=== PATIENT | female | born 1950 | race Caucasian/White ===

== ENCOUNTER 2020-11-24 14:06 | Outpatient (CLI) | payer MEDICARE, SELFPAY ==
--- NOTE | ~2020-11-24 | US_ITS ---
EXAMINATION: US carotid duplex BI DATE: 11/24/2020 14:54 INDICATION: Carotid stenosis. Dizziness. TECHNIQUE: Grayscale, color Doppler, and pulsed Doppler images of the cervical carotid arteries were obtained. The degree of vessel stenosis is placed in one of the following categories: normal, <50%, 5 0-69%, >=70% but less than near-occlusion, near-occlusion, or total occlusion. Note that percent sten osis relative to normal distal artery lumen diameter is indirectly measured from velocity measurement s as described by Wallace, et al. Radiology 2003; 229:340-346. Notes: Normal: Peak systolic velocity <125 centimeters/sec and no plaque <50%. Peak systolic velocity <125 ( EDV <40; ICA/CCA PSV ratio <2.0; used these factors only a tandem lesions or low cardiac output or co ntralateral disease) 50-69 %: PSV 125-230 (EDV 40-100; ratio 2-4) >= 70% but less than near occlusion: PSV greater than 230 (EDV > 100; ratio> 4.0) Near Occlusion: PSV that is variable; markedly narrowed lumen Occlusion: Absent flow on color/spectral Doppler and no lumen on joyce scale. COMPARISON: None. FINDINGS: RIGHT: The right common carotid artery (CCA) peak systolic velocity (PSV) is 112 cm/s. The right internal ca rotid artery (ICA) PSV is 108 cm/s. The right ICA end-diastolic velocity (EDV) is 31 cm/s. The right ICA/CCA PSV ratio is 0.97. The external carotid artery (ECA) PSV is 104 cm/s. There is antegrade flow in the right vertebral artery. There is a 2 cm right thyroid nodule, partially visualized. LEFT: The left CCA PSV is 111 cm/s. The left ICA PSV is 96 cm/s. The left ICA EDV is 28 cm/s. The left ICA/ CCA PSV ratio is 0.87. The ECA PSV is 146 cm/s. There is antegrade flow in the left vertebral artery . IMPRESSION: 1. Less than 50% stenosis in the right internal carotid artery by sonographic criteria. 2. Less than 50% stenosis in the left internal carotid artery by sonographic criteria. 2: Partially visualized 2 cm right thyroid nodule. Dedicated thyroid ultrasound recommended for furth er assessment. Reviewed, dictated and finalized at location A. IMPRESSION: 1. Less than 50% stenosis in the right internal carotid artery by sonographic c riteria. 2. Less than 50% stenosis in the left internal carotid artery by sonographic cr iteria. 2: Partially visualized 2 cm right thyroid nodule. Dedicated thyroid ultrasound recommended for further assessment.
--- NOTE | ~2020-11-24 | CT_ITS ---
EXAMINATION: CT brain wo con EXAM DATE: 11/24/2020 14:27 INDICATION: G45.9 - Transient cerebral ischemic attack, unspecified . Dizziness. TECHNIQUE: Spiral CT of the head was performed without contrast. Axial, coronal and sagittal images were reviewed. The dose-length product (DLP) for this examination was 529.67 mGy-cm. The exposure w as tailored according to patient size, and iterative reconstruction (ASIR) was used as additional dos e reduction technique. There is no prior study for comparison. FINDINGS: There is no acute intraparenchymal hemorrhage. No evidence of intraparenchymal brain mass lesion. No evidence of acute infarction. Please note that initial head CT has limited sensitivity f or small or acute infarctions. There is mild periventricular and subcortical hypodensity, nonspecific but probably related to small vessel ischemic disease. There is mild prominence of the sulci and v entricles related to cerebral atrophy. There is intracranial carotid arteriosclerosis. There are n o extra-axial collections. There is no mass effect or midline shift. The orbits are unremarkable. Soft tissue is unremarkable. The visualized sinuses and mastoid air cells are well aerated. IMPRESSION: 1. No acute intracranial findings. 2. Chronic age related findings. Reviewed, dictated and finalized at location B.
== END 2020-11-24 14:07 | disposition home or self-care (01) ==
PROVIDERS: PCP Family Medicine; Visit Provider Family Medicine
DX: I65.23 Occlusion and stenosis of bilateral carotid arteries (principal)
CPT/HCPCS: 70450; 93880

== ENCOUNTER 2021-01-20 13:46 | Outpatient (CLI) | payer MEDICARE, SELFPAY ==
--- NOTE | ~2021-01-20 | US_ITS ---
EXAMINATION: US thyroid DATE: 01/20/2021 14:25 INDICATION: Nontoxic thyroid nodule on prior CT TECHNIQUE: Multiple ultrasound images of the thyroid were obtained. COMPARISON: None. FINDINGS: The right thyroid lobe measures 6.0 x 2.1 x 1.8 cm. The left thyroid lobe measures 3.7 x 1.6 x 1.2 c m. There are 3 thyroid nodules which are solid, wider than tall, hypoechoic with smooth margins and without echogenic foci (TI-RADS 4, moderately suspicious , FNA if >=1.5 cm, annual followup is >=1 cm ). The largest measuring 2.8 cm in the inferior thyroid, the next largest in the mid thyroid measures 1.5 cm and finally there is a 7 mm nodule at the superior left thyroid. There is an additional 1.5 c m solid isoechoic nodule with smooth margins and without echogenic foci (TI-RADS 3, mildly suspicious , FNA if >=2.5 cm, annual followup is >1.5 cm) in the inferior left thyroid. IMPRESSION: 1. Multinodular goiter. Recommend ultrasound-guided biopsy of the largest 2.8 cm TI RADS 4 nodule in the right thyroid. Reviewed, dictated and finalized at location A. IMPRESSION: 1. Multinodular goiter. Recommend ultrasound-guided biopsy of the largest 2.8 c m TI RADS 4 nodule in the right thyroid.
== END 2021-01-20 13:47 | disposition home or self-care (01) ==
PROVIDERS: PCP Family Medicine; Visit Provider Family Medicine
DX: E04.2 Nontoxic multinodular goiter (principal)
CPT/HCPCS: 76536

== ENCOUNTER 2021-01-28 13:00 | Outpatient (CLI) | payer MEDICARE, SELFPAY ==
--- NOTE | ~2021-01-28 | US_ITS ---
EXAMINATION: US FNA w image guidance DATE: 01/28/2021 14:08 INDICATION: Nontoxic single thyroid nodule TECHNIQUE: A time-out was performed to verify the patient's name, date of , and procedure to be performed . The procedure and its benefits and risks were discussed with the patient. Risks specifically discus sed included bleeding and infection. The patient understood the risks and agreed to proceed. The neck was prepped and draped in the usual sterile manner. 3 mL 1% lidocaine was used for local anesthesia . 6 passes were made with a 25G needle into the lesion. Appropriate needle location was documented with continuous sonographic guidance. The specimens were passed to the radiologic technologist chief in the room. A sterile bandage was applied. There were no immediate complications. FINDINGS: Grayscale ultrasound images demonstrate biopsy needles advanced into a 3.4 x 2.4 x 2.1 cm solid nodul es at the inferior right thyroid. IMPRESSION: 1. Successful ultrasound-guided fine needle aspiration of a 3.4 cm solid TI RADS 4 nodule at the inf erior right thyroid. Reviewed, dictated and finalized at location A. IMPRESSION: 1. Successful ultrasound-guided fine needle aspiration of a 3.4 cm solid TI RA DS 4 nodule at the inferior right thyroid.
== END 2021-01-28 13:01 | disposition home or self-care (01) ==
PROVIDERS: PCP Family Medicine; Visit Provider Physician Assistant
DX: E04.1 Nontoxic single thyroid nodule (principal)
CPT/HCPCS: 10005; 88173; 88305

== ENCOUNTER 2021-02-18 09:12 | Outpatient (CLI) | payer MEDICARE, SELFPAY ==
--- NOTE | 2021-02-18 09:30 | ECG_ITS ---
Measurements Intervals [place] Rate: 75 P: 63 [place]: 129 QRS: 8 QRSD: 91 T: 33 QT: 370 QTc: 415 Interpretive Statements SINUS RHYTHM POSSIBLE LEFT ATRIAL ENLARGEMENT BORDERLINE R WAVE PROGRESSION, ANTERIOR LEADS BASELINE ARTIFACT- I, II, III, AVR, AVL BORDERLINE ECG Electronically Signed On 02-18-2021 9:32:26 CDT by Jim Baez D.O.
== END 2021-02-18 09:13 | disposition home or self-care (01) ==
LOC: ANHSURGERY 09:19
PROVIDERS: PCP Family Medicine; Visit Provider Otolaryngology
DX: Z01.810 Encounter for preprocedural cardiovascular examination (principal)
CPT/HCPCS: 93005

== ENCOUNTER 2021-02-24 01:47 | Day surgery (SDC) | payer MEDICARE, SELFPAY ==
[2021-02-13 15:12] VITALS: BMI 25.8
--- NOTE | 2021-02-23 05:40 | PM.HPGS ---
History of Present Illness History of Present Illness Consent: Risks, benefits, and alternatives have been discussed and questions answered. Patient agrees to proceed with procedure. Chief complaint: right thyroid nodule Narrative: Ariane Rodriges is a 70 year old female with a biopsy benign thyroid nodule that she feels is bothers her when she swallows Review of Systems Review of Systems: All systems reviewed & are unremarkable except as noted in HPI and below PMFSH Past Medical History Medical History HLD (hyperlipidemia) Surgical History Surgical History H/O section History of tonsillectomy Family History Family History Father Hypertension Family history of diabetes mellitus in first degree relative Family history of coronary artery disease Sibling Hypertension Asthma Family history of coronary artery disease Social History Social History Smoking status: Never smoker Second hand tobacco smoke exposure: No Alcohol intake: current Alcohol use details: WINE Substance use: never Substance use type: does not use Gender identity (if verbalized by the patient): Female Spiritual care concerns: No Meds Home Medications and Allergies Home Medications Medication Instructions Recorded Confirmed Type fexofenadine 180 mg tablet 180 mg PO DAILY 07/09/19 02/13/21 History fluticasone 500 mcg-salmeterol 50 1 inhalation INHALATION Q12H 07/09/19 02/13/21 History mcg/dose blistr powdr for inhalation fluticasone propionate 50 2 spray NASAL DAILY PRN 07/09/19 02/13/21 History mcg/actuation nasal spray,suspension albuterol sulfate 90 mcg/actuation 1 inhalation INHALATION Q4H PRN 09/03/19 02/13/21 Rx aerosol inhaler #6.7 gm pravastatin 20 mg tablet 20 mg PO DAILY #90 tablet 12/17/20 02/13/21 Rx multivitamin 1 tablet PO DAILY 01/21/21 02/13/21 History omega-3 fatty acids 1,000 mg 1,000 mg PO DAILY 01/21/21 02/13/21 History capsule vitamins A,C,T-ucuj-cmdmos 14,320 1 cap PO BID 01/21/21 02/13/21 History unit-226 mg-200 unit capsule Lacto.acidophilus-Bif.animalis 2 tablet PO DAILY 02/13/21 02/13/21 History [Children's Chewable Probiotic] aspirin 81 mg PO DAILY 02/13/21 02/13/21 History biotin-keratin [Biotin Plus 1 tablet PO DAILY 02/13/21 02/13/21 History Keratin] cholecalciferol (vitamin D3) 375 mcg PO DAILY 02/13/21 02/13/21 History dorzolamide [Trusopt] 1 drp LEFT EYE TID 02/13/21 02/13/21 History famotidine [Pepcid] 40 mg PO DAILY 02/13/21 02/13/21 History ketorolac 1 drp LEFT EYE QID 02/13/21 02/13/21 History lisinopril 10 mg PO QAM 02/13/21 02/13/21 History prednisolone acetate 1 drp LEFT EYE QID 02/13/21 02/13/21 History Allergies Allergy/AdvReac Type Severity Reaction Status Date / Time atorvastatin AdvReac Intermediate muscle Verified 02/13/21 14:55 cramps Exam Narrative: chest clear heart murmurs abdomen soft extremities negative palpable right thyroid nodule Assessment and Plan Additional Plan plan right thyroidectomy she has been explained the risks regarding recurring laryngeal nerve injury
[2021-02-24] VITALS (9 sets, daily range): BP systolic 130–169; BP diastolic 56–87; PULSE 71–89; RESP 14–18; TEMP 36.3–36.4; O2SAT 97–100; BMI 25.4
--- NOTE | 2021-02-24 06:38 | WPDHPUPDATE1 ---
History and Physical Update Update Date/Time: 02/24/21 06:38 History and Physical has been reviewed, including an updated exam of the patient. There are NO changes in the patient's condition. Risks, benefits, and alternatives have been discussed and questions answered. Patient agrees to proceed with procedure.
--- NOTE | 2021-02-24 08:50 | WPDANESEPPF ---
Anes - Initial Pre Proc Eval Procedure: Operation Date: 02/24/21 10:30 Proposed Procedures p Right Thyroidectomy - Ezio Prado MD Date/Time: 02/24/21 08:50 Surgeon: Ezio Prado MD Pre Op Diagnosis: right thyroid nodule Patient Data Age: 70 Gender: F Height: 1.5 m Weight: 58 kg Allergies Allergy/AdvReac Type Severity Reaction Status Date / Time atorvastatin AdvReac Intermediate muscle Verified 02/24/21 08:55 cramps Home Medications Medication Instructions Recorded Confirmed Type fexofenadine 180 mg tablet 180 mg PO DAILY 07/09/19 02/13/21 History fluticasone 500 mcg-salmeterol 50 1 inhalation INHALATION Q12H 07/09/19 02/13/21 History mcg/dose blistr powdr for inhalation fluticasone propionate 50 2 spray NASAL DAILY PRN 07/09/19 02/13/21 History mcg/actuation nasal spray,suspension albuterol sulfate 90 mcg/actuation 1 inhalation INHALATION Q4H PRN 09/03/19 02/13/21 Rx aerosol inhaler #6.7 gm pravastatin 20 mg tablet 20 mg PO DAILY #90 tablet 12/17/20 02/13/21 Rx multivitamin 1 tablet PO DAILY 01/21/21 02/13/21 History omega-3 fatty acids 1,000 mg 1,000 mg PO DAILY 01/21/21 02/13/21 History capsule vitamins A,C,Z-zguw-mitdvd 14,320 1 cap PO BID 01/21/21 02/13/21 History unit-226 mg-200 unit capsule Lacto.acidophilus-Bif.animalis 2 tablet PO DAILY 02/13/21 02/13/21 History [Children's Chewable Probiotic] aspirin 81 mg PO DAILY 02/13/21 02/13/21 History biotin-keratin [Biotin Plus 1 tablet PO DAILY 02/13/21 02/13/21 History Keratin] cholecalciferol (vitamin D3) 375 mcg PO DAILY 02/13/21 02/13/21 History dorzolamide [Trusopt] 1 drp LEFT EYE TID 02/13/21 02/13/21 History famotidine [Pepcid] 40 mg PO DAILY 02/13/21 02/13/21 History ketorolac 1 drp LEFT EYE QID 02/13/21 02/13/21 History lisinopril 10 mg PO QAM 02/13/21 02/13/21 History prednisolone acetate 1 drp LEFT EYE QID 02/13/21 02/13/21 History ECG: Date of Service: 02/18/21 Procedure(s): CA 12 lead EKG Accession Number(s): [id number] cc: ~ Measurements Intervals [place] Rate: 75 P: 63 [place]: 129 QRS: 8 QRSD: 91 T: 33 QT: 370 QTc: 415 Interpretive Statements SINUS RHYTHM POSSIBLE LEFT ATRIAL ENLARGEMENT BORDERLINE R WAVE PROGRESSION, ANTERIOR LEADS BASELINE ARTIFACT- I, II, III, AVR, AVL BORDERLINE ECG Electronically Signed On 02-18-2021 9:32:26 CDT by Jim Baez D.O. Dictated By: Jim Baez DO 02/18/21931 Patient hx anesthesia problems: none Family hx anesthesia problems: none PMFSH Past Medical History Medical History HLD (hyperlipidemia) Surgical History Surgical History H/O section History of tonsillectomy Family History Family History Father Hypertension Family history of diabetes mellitus in first degree relative Family history of coronary artery disease Sibling Hypertension Asthma Family history of coronary artery disease Social History Social History Second hand tobacco smoke exposure: No Alcohol intake: current Alcohol use details: rare Substance use: never Substance use type: does not use Living arrangements: alone Gender identity (if verbalized by the patient): Female Spiritual care concerns: No Anes - Eval Final PreProcedure Day of Procedure 02/24/21 08:50 Patient weight: normal Heart: regular rate and rhythm Lungs: clear to auscultation and normal air movement Airway: Mallampati scale
[2021-02-24] MEDS: LACTATED RINGERS 1,000 ML 30 ML IV CONT ×2 (09:12→11:05)
[2021-02-24] MEDS: ACETAMINOPHEN 500 MG TABLET 1000 MG PO (09:18)
[2021-02-24] MEDS: ceFAZolin 2 GM/D5W 50 ML 2 GM/50 ML BAG IVPB (10:15)
[2021-02-24] MEDS: LIDO 1%/EPINEPHRINE 1:100,000 10 ML VIAL 50 ML INFILTRATE (10:32)
--- NOTE | 2021-02-24 10:54 | W.PM.PROC2 ---
Procedure Note - Detailed Date of Procedure 02/24/21 Pre-op Diagnosis right thyroid nodule Post-op Diagnosis same Procedure Performed Right thyroidectomy Surgeon Ezio Prado MD Description of Procedure Patient was prepped and draped fashion anesthesia low collar incision was made after injecting with xylocaine with adrenaline subplatysmal flaps elevated midline strap muscles were divided the right side of the thyroid was identified with the micro debrided with the LigaSure a 2 large nodules on the right side removed care being taken to preserve the marginal branch of the recurrent recurring laryngeal nerve hemostasis was obtained with bipolar cautery hematuria placed in closed in layers a chromic and Monocryl Revised 01/24
[2021-02-24] MEDS: oxyCODONE HCL (*CRX) 5 MG TAB IR PO (12:10)
== END 2021-02-24 13:05 | disposition home or self-care (01) ==
PROVIDERS: PCP Family Medicine; Visit Provider Otolaryngology
PROC: (CPT 60210; principal; 2021-02-24 10:30)
DX: E04.2 Nontoxic multinodular goiter (principal); E06.5 Other chronic thyroiditis; E78.5 Hyperlipidemia, unspecified; Z79.51 Long term (current) use of inhaled steroids
CPT/HCPCS: 60210; 88307; A9270; J0330; J0690; J1100; J2405; J2704; J3010; J7120

== ENCOUNTER 2022-01-08 04:10 | Emergency (ER) | payer MEDICARE, SELFPAY ==
[2022-01-08 04:17] VITALS: BP 189/81; PULSE 92; RESP 18; TEMP 35.9; O2SAT 97
[2022-01-08] MEDS: ONDANSETRON HCL ODT 4 MG TABLET PO (05:47)
[2022-01-08] MEDS: FLUCONAZOLE 150 MG TABLET PO (05:48)
[2022-01-08] MEDS: metroNIDAZOLE 250 MG TABLET 2000 MG PO (05:49)
[2022-01-08 05:55] VITALS: BP 155/90; PULSE 85; RESP 17; O2SAT 95
--- NOTE | 2022-01-08 06:43 | ED.FEMALEGU ---
HPI - Female Genitourinary General Chief complaint: Urogenital-Female Stated complaint: burning in naya area Time Seen by Provider: 01/08/22 04:54 History of Present Illness HPI Narrative: 71-year-old female presents because she was noticing several weeks of irritation around her vagina, she thought it might be yeast so she got some ointment but this did not improve, she went to see her doctor who got a urinalysis but this did not show any infection. No fevers or chills. Not currently sexually active for 30 years. No vaginal bleeding. No discharge. Related Data Home Medications Medication Instructions Recorded Confirmed fexofenadine 180 mg tablet 180 mg PO DAILY 07/09/19 05/04/21 (Ally Allergy) fluticasone 500 mcg-salmeterol 50 1 inhalation inhalation Q12H 07/09/19 05/04/21 mcg/dose blistr powdr for inhalation (Advair Diskus) fluticasone propionate 50 2 spray intranasal DAILY PRN 07/09/19 05/04/21 mcg/actuation nasal Congestion spray,suspension multivitamin 1 tablet PO DAILY 01/21/21 05/04/21 omega-3 fatty acids 1,000 mg 1,000 mg PO DAILY 01/21/21 05/04/21 capsule (Fish Oil Concentrate) vitamins A,C,M-alrg-cwfosd 14,320 1 cap PO BID 01/21/21 05/04/21 unit-226 mg-200 unit capsule (PreserVision AREDS) Lactobac.acidophilus-Bifido.animalis 2 tablet PO DAILY 02/13/21 05/04/21 1.5 billion cell chewable tablet aspirin 81 mg chewable tablet 81 mg PO DAILY 02/13/21 05/04/21 biotin 10,000 mcg-keratin 100 mg 1 tablet PO DAILY 02/13/21 05/04/21 tablet (Biotin Plus Keratin) cholecalciferol (vitamin D3) 125 375 mcg PO DAILY 02/13/21 05/04/21 mcg (5,000 unit) capsule dorzolamide 2 % eye drops (Trusopt) 1 drp LEFT EYE TID 02/13/21 05/04/21 ketorolac 0.5 % eye drops 1 drp LEFT EYE QID 02/13/21 05/04/21 prednisolone acetate 1 % eye 1 drp LEFT EYE QID 02/13/21 05/04/21 drops,suspension Allergies Allergy/AdvReac Type Severity Reaction Status Date / Time atorvastatin AdvReac Intermediate muscle Verified 01/08/22 04:13 cramps Review of Systems Review of Systems: CONST: No fever. HEENT: No sore throat C/V: No chest pain RESP: No difficulty breathing GI: No abdominal pain : No dysuria but some discomfort and irritation around her perineum/vagina M/S: No joint pain. SKIN: No rash. NEURO: [No headache or focal numbness or weakness] PSYCH: [No depression] [facility] Past Medical History Medical History HLD (hyperlipidemia) Surgical History Surgical History H/O section History of retinal detachment left History of tonsillectomy Hx of partial thyroidectomy Family History Family History Father Hypertension Family history of diabetes mellitus in first degree relative Family history of coronary artery disease Sibling Hypertension Asthma Family history of coronary artery disease Social History Social History Smoking status: Never smoker Second hand tobacco smoke exposure: No Alcohol intake: current Alcohol use details: rare Substance use: never Substance use type: does not use Gender identity (if verbalized by the patient): Female Spiritual care concerns: No Exam Narrative: EXAMINATION OF ORGAN SYSTEMS/BODY AREAS: Constitutional: Vital signs per nursing GENERAL:[No acute distress, non-toxic appearing.] HEAD: Normal with no signs of head trauma. EYES: EOMI, conjunctiva normal ENT: Hearing grossly intact LUNGS: Nonlabored breathing. HEART: [Regular rate and rhythm] ABD: [Soft], [nontender to palpation] : No vaginal discharge, no lesions around the vagina or canal, no fissures EXT: Normal range of motion SKIN: [No rashes or lesions.] NEURO: [Alert and oriented x 3. No gross focal sensory or strength deficits.] PSYCH: Normal affect Course Vital Si
== END 2022-01-08 05:57 | disposition home or self-care (01) ==
PROVIDERS: Emergency Provider Emergency Medicine; PCP Family Medicine
DX: N89.8 Other specified noninflammatory disorders of vagina (principal); E78.5 Hyperlipidemia, unspecified; E89.0 Postprocedural hypothyroidism; Z79.82 Long term (current) use of aspirin
CPT/HCPCS: 99283; A9270

== ENCOUNTER 2022-08-11 12:45 | Emergency (ER) | payer MEDICARE, SELFPAY ==
--- NOTE | ~2022-08-11 | XR_ITS ---
EXAMINATION: XR chest 2V 08/11/2022 13:32 INDICATION: Shortness of breath. History of asthma. PROCEDURE: 2 view chest COMPARISON: No prior studies for comparison. FINDINGS: The lungs are clear. The cardiomediastinal silhouette is within normal limits. There are no pleural effusions. There is no pneumothorax suspected. There are calcified granulomas of both natalie ngs. IMPRESSION: 1: NO ACUTE CARDIOPULMONARY DISEASE. Reviewed, dictated and finalized at location B. OR BRANCH MANAGER
[2022-08-11 12:57] VITALS: BP 135/61; PULSE 72; RESP 16; TEMP 36.6; O2SAT 98
[2022-08-11 13:01] VITALS: BP 135/61; PULSE 72; RESP 16; TEMP 36.6; O2SAT 98
--- NOTE | 2022-08-11 13:23 | ED.URI ---
HPI - URI/Sore Throat General Chief Complaint: Upper Respiratory Infection Stated Complaint: ASTHMA Time Seen by Provider: 08/11/22 13:14 Source: patient Mode of arrival: ambulatory Limitations: no limitations History of Present Illness HPI Narrative: patient is a 71-year-old female that presents with chest heaviness and productive cough for 2 weeks. patient was seen 2 weeks ago and had a refill for her asthma patient. patient states she is using her rescue inhaler 2 to 3 times a day with no relief. Patient's states she remembered that she had a steroid Dosepak at the pharmacy and pick that up 5 days ago, finishing yesterday. Patient states she no relief. patient denies any sinus congestion, headache, fever. Related Data Home Medications Medication Instructions Recorded Confirmed fexofenadine 180 mg tablet 180 mg PO DAILY 07/09/19 08/11/22 (Ally Allergy) fluticasone propionate 50 2 spray intranasal DAILY PRN 07/09/19 08/11/22 mcg/actuation nasal Congestion spray,suspension multivitamin 1 tablet PO DAILY 01/21/21 08/11/22 omega-3 fatty acids 1,000 mg 1,000 mg PO DAILY 01/21/21 08/11/22 capsule (Fish Oil Concentrate) vitamins A,C,B-lvxp-xdfsnf 4,296 1 cap PO BID 01/21/21 08/11/22 mcg-226 mg-90 mg capsule (PreserVision AREDS) Lactobac.acidophilus-Bifido.animalis 2 tablet PO DAILY 02/13/21 08/11/22 1.5 billion cell chewable tablet aspirin 81 mg chewable tablet 81 mg PO DAILY 02/13/21 08/11/22 biotin 10,000 mcg-keratin 100 mg 1 tablet PO DAILY 02/13/21 08/11/22 tablet (Biotin Plus Keratin) cholecalciferol (vitamin D3) 125 375 mcg PO DAILY 02/13/21 08/11/22 mcg (5,000 unit) capsule famotidine 20 mg tablet 20 mg PO BID 08/11/22 08/11/22 ketorolac 0.5 % eye drops 1 drp ophthalmic (eye) DIRECTED 08/11/22 08/11/22 Allergies Allergy/AdvReac Type Severity Reaction Status Date / Time atorvastatin AdvReac Intermediate muscle Verified 08/11/22 12:58 cramps Review of Systems Review of Systems: CONSTITUTIONAL: Denies malaise, chills, sweats, or fever.? EYES: Denies visual changes, redness, or discharge.? ENT: denies rhinorrhea, congestion, sinus pain, otalgia and sore throat.? CARDIOVASCULAR: Denies chest pain, palpitations, or edema.? RESPIRATORY: Reports cough and dyspnea.? GASTROINTESTINAL: Denies abdominal pain, nausea, vomiting, diarrhea? SKIN: Denies rash or itching.? MUSCULOSKELETAL: Denies myalgia.? NEUROLOGIC: Denies headache All systems reviewed & are unremarkable except as noted in HPI and below PMFSH Past Medical History Medical History (Updated 08/11/22 @ 13:59 by Iqra Browning APRN) Asthma GERD (gastroesophageal reflux disease) HLD (hyperlipidemia) Hypothyroidism (acquired) Surgical History Surgical History H/O section History of retinal detachment left History of tonsillectomy Hx of partial thyroidectomy Family History Family History Father Hypertension Family history of diabetes mellitus in first degree relative Family history of coronary artery disease Sibling Hypertension Asthma Family history of coronary artery disease Social History Social History Smoking status: Never smoker Second hand tobacco smoke exposure: No Alcohol intake: current Drinks per week: 1 Alcohol use details: rare Substance use: never Substance use type: does not use Living arrangements: alone Occupation/Education: retired Gender identity (if verbalized by the patient): Female Spiritual care concerns: No Comments At time of signature, agree with nursing past medical, surgical, social and family history. There is no relevant family history pertinent to the presenting complaint? Exam Narrative: GENERAL: Well-appearing, well-nourished, and in no acute distress.? HEAD: Normoceph
[2022-08-11] MEDS: ALBUTEROL SULFATE NEB 2.5 MG/3 ML INH INHALATION (14:27)
[2022-08-11] MEDS: IPRATROPIUM BR 0.02% INH SOLN 0.5 MG/2.5 ML VIAL INHALATION (14:27)
[2022-08-11 15:00] VITALS: PULSE 78; RESP 18; O2SAT 99
--- NOTE | 2022-08-11 15:41 | PC.NURSE ---
1406- in room with patient to give discharge instructions, and pt asked why am i not getting a breathing treatment, since i know it helped my sister, and that is why i came, explained to pt that i would have the FOOD PRODUCTION MANAGER come back in and talk with her. 1425- neb treatment ordered and set up, explained to pt on usage, and time in duration. pt verbalized understanding.
== END 2022-08-11 15:00 | disposition home or self-care (01) ==
PROVIDERS: Emergency Provider Nurse Practitioner Family; PCP Family Medicine
DX: J06.9 Acute upper respiratory infection, unspecified (principal); E78.5 Hyperlipidemia, unspecified; E03.9 Hypothyroidism, unspecified; Z79.82 Long term (current) use of aspirin
CPT/HCPCS: 71046; 94640; 99213; G0463

== ENCOUNTER 2023-05-10 13:31 | Outpatient (CLI) | payer MEDICARE, SELFPAY ==
--- NOTE | ~2023-05-10 | DEXA_ITS ---
Bone Density Report Name: MALIK SINGLETARY Age: 72 Sex: Female Ethnicity: White Date of : 1950 Indication: postmenopausal; screening for osteoporosis; asthma or emphysema; Referring Provider: NATHAN GIL Study: Bone densitometry was performed. Exam Date: May 10, 2023 Accession number: [id number] Bone Density: Region BMD T-score Z-score Classification AP Spine(L1-L4) 0.957 -0.8 1.4 Normal Femoral Neck (Left) 0.693 -1.4 0.5 Osteopenia Total Hip (Left) 0.891 -0.4 1.2 Normal Femoral Neck (Right) 0.678 -1.5 0.4 Osteopenia Total Hip (Right) 0.848 -0.8 0.9 Normal Total Hip Mean 0.870 -0.6 1.1 Normal World Health Organization criteria for BMD impression classify patients as: Normal (T-score at or above -1.0), Osteopenia (T-score between -1.0 and -2.5), or Osteoporosis (T-score at or below -2.5). 10-year Fracture Risk(1): Major Osteoporotic Fracture 11% Hip Fracture 1.8% Reported Risk Factors: [place] (), Neck BMD=0.678, BMI=26.6 (1) FRAX(R) Version 3.08. Fracture probability calculated for an untreated patient. Fracture probability may be lower if the patient has received treatment. Clinical Information Provided by Patient: Has used the following medications: Vitamin D Has the following medical conditions: Asthma or Emphysema Patient maximum height was 60 Menopause Age: 55 Drinks caffeinated beverages Onset of menses at age 13 Number of children 1 Impression: The patient has low bone mass, based on the Right Femoral Neck T-score. The patient has an estimated ten-year risk of hip fracture of 1.8% and an estimated ten-year risk of major fracture of 11%, based on the WHO FRAX algorithm. Discussion: BONE DENSITY IS LOW AT ONE OR MORE SKELETAL SITES. This patient's lowest T-score is low at one or more skeletal sites. It meets the World Health Organization's (WHO) criteria for ?low bone mass? (T-score between -1.0 and -2.5). The patient's 10-year risk of fracture as calculated by FRAX is less than the threshold where pharmacological therapy is recommended by the National Osteoporosis Foundation (NOF). However, all treatment decisions require clinical judgment and consideration of individual patient factors, including patient preferences, comorbidities, previous drug use, risk factors not captured in the FRAX model (e.g., frailty, falls, vitamin D deficiency, increased bone turnover, interval significant decline in bone density) and possible under or overestimation of fracture risk by FRAX. The patient should follow a healthful lifestyle (good nutrition with adequate calcium and vitamin D, and appropriate weight-bearing exercise). Follow-Up: Consider repeating this study in 2 to 3 years to reassess this patient's status, or sooner if there is some new clinical ind
== END 2023-05-10 13:32 | disposition home or self-care (01) ==
PROVIDERS: PCP Family Medicine; Visit Provider Family Medicine
DX: Z78.0 Asymptomatic menopausal state (principal); M85.852 Other specified disorders of bone density and structure, left thigh; M85.851 Other specified disorders of bone density and structure, right thigh
CPT/HCPCS: 77080

== ENCOUNTER 2023-05-26 18:30 | Emergency (ER) | payer MEDICARE, SELFPAY ==
[2023-05-26 18:52] VITALS: BP 178/77; PULSE 101; RESP 16; TEMP 36.2; O2SAT 99
[2023-05-26 18:56] VITALS: BP 178/77; PULSE 101; RESP 16; TEMP 36.2; O2SAT 99
--- NOTE | 2023-05-26 19:06 | ED.URI ---
HPI - URI/Sore Throat General Chief Complaint: Upper Respiratory Infection Stated Complaint: Chest Congestion Source: patient Mode of arrival: ambulatory Limitations: no limitations History of Present Illness HPI Narrative: 72-year-old female with history of asthma presented for complaint of cough. Onset yesterday. States last night she heard some wheezing. She has been using Robitussin cough syrup without significant improvement. Also using albuterol inhaler and Advair. Denies shortness of breath, nausea, vomiting, fevers or chills. Related Data Home Medications Medication Instructions Recorded Confirmed fluticasone propionate 50 2 spray intranasal DAILY PRN 07/09/19 05/26/23 mcg/actuation nasal Congestion spray,suspension multivitamin 1 tablet PO DAILY 01/21/21 05/26/23 omega-3 fatty acids 1,000 mg 1,000 mg PO DAILY 01/21/21 05/26/23 capsule (Fish Oil Concentrate) Lactobac.acidophilus-Bifido.animalis 2 tablet PO DAILY 02/13/21 05/26/23 1.5 billion cell chewable tablet biotin 10,000 mcg-keratin 100 mg 1 tablet PO DAILY 02/13/21 05/26/23 tablet (Biotin Plus Keratin) cholecalciferol (vitamin D3) 125 375 mcg PO DAILY 02/13/21 05/26/23 mcg (5,000 unit) capsule ketorolac 0.5 % eye drops 1 drp ophthalmic (eye) DIRECTED 08/11/22 05/26/23 Allergies Allergy/AdvReac Type Severity Reaction Status Date / Time atorvastatin AdvReac Intermediate muscle Verified 05/26/23 18:50 cramps Review of Systems Review of Systems: CONSTITUTIONAL: Denies body aches, fever, chills, or sweats. EYES: Denies visual changes, redness, or discharge. ENT: Denies rhinorrhea, congestion, sore throat, or otalgia. CARDIOVASCULAR: Denies chest pain, palpitations, or edema. RESPIRATORY: Reports cough, denies sob GASTROINTESTINAL: Denies abdominal pain, nausea, vomiting, or diarrhea. SKIN: Denies rash, itching, or wounds. MUSCULOSKELETAL: Denies back pain, joint pain, or myalgia. NEUROLOGIC: Denies headache, numbness, tingling, or weakness. All systems reviewed & are unremarkable except as noted in HPI and below PMFSH Past Medical History Medical History Asthma GERD (gastroesophageal reflux disease) HLD (hyperlipidemia) Hypothyroidism (acquired) Surgical History Surgical History H/O section History of retinal detachment left History of tonsillectomy Hx of partial thyroidectomy Family History Family History Father Hypertension Family history of diabetes mellitus in first degree relative Family history of coronary artery disease Sibling Hypertension Asthma Family history of coronary artery disease Social History Social History Smoking status: Never smoker Second hand tobacco smoke exposure: No Alcohol intake: current Drinks per week: 1 Alcohol use details: WINE Substance use: never Substance use type: does not use Living arrangements: alone Occupation/Education: retired Gender identity (if verbalized by the patient): Female Spiritual care concerns: No Comments At time of signature, I have reviewed and agree with nursing past medical, surgical, social and family history unless otherwise noted. Please see nursing chart for further information. There is no relevant family history pertinent to the presenting complaint Exam Narrative: GENERAL: Well-appearing EYES: EOMI. No redness or drainage. Conjunctivae normal. ENT: Mucous membranes pink and moist. No rhinorrhea. TMs normal bilaterally. Throat normal. Uvula midline. NECK: Normal AROM. Supple. CHEST: No respiratory distress. Lungs clear to all gong. Infrequent moist plate drying machine tender cough. HEART: Regular rate and rhythm. No murmur appreciated. SKIN: Warm, dry, no rash. Capillary refill normal. Normal ski
== END 2023-05-26 19:22 | disposition home or self-care (01) ==
PROVIDERS: Emergency Provider Nurse Practitioner Family; PCP Family Medicine
DX: J40 Bronchitis, not specified as acute or chronic (principal); E78.5 Hyperlipidemia, unspecified; E03.9 Hypothyroidism, unspecified; Z79.899 Other long term (current) drug therapy
CPT/HCPCS: 99213; G0463

== ENCOUNTER 2023-06-10 13:40 | Outpatient (CLI) | payer MEDICARE, SELFPAY ==
--- NOTE | ~2023-06-10 | XR_ITS ---
EXAMINATION: XR chest 2V DATE: 06/10/2023 13:57 INDICATION: Cough and congestion TECHNIQUE: Frontal and lateral views of the chest are obtained COMPARISON: 08/11/2022 FINDINGS: The lungs are free of acute opacities. No pleural effusion or pneumothorax. The cardiomedia stinal silhouette is normal. There is moderate thoracic spondylosis. Calcified pulmonary nodules are consistent with old granulomatous disease. IMPRESSION: 1. No acute cardiopulmonary abnormality. Reviewed, dictated and finalized at location B. NCIAL SERVICES OFFICER
== END 2023-06-10 13:41 | disposition home or self-care (01) ==
PROVIDERS: PCP Family Medicine; Visit Provider Physician Assistant
DX: R05.9 Cough, unspecified (principal)
CPT/HCPCS: 71046

== ENCOUNTER 2023-10-24 18:54 | Emergency (ER) | payer MEDICARE, OTHER, SELFPAY ==
--- NOTE | 2023-10-24 18:58 | ED.SKABFB ---
HPI - Skin/Abscess/Foreign Bdy General Chief complaint: Skin/Abscess/Foreign Body Stated complaint: Bite On Forehead Source: patient and RN notes reviewed Mode of arrival: ambulatory Limitations: no limitations History of Present Illness HPI narrative: patient is a 72-year-old female who presents with possible insect bite to her forehead. Patient [place] that [place] when her brother noticed a bug in her hair. She believes that she may have been bitten by the insect. When she woke up this morning she noted swelling and redness surrounding the bite. She is noted to have erythema and edema to her forehead surrounding what appears to be a possible insect bite. She states that she may have had weeping of the wound earlier today. No active drainage. No recent fevers. Related Data Home Medications Medication Instructions Recorded Confirmed fluticasone propionate 50 2 spray intranasal DAILY PRN 07/09/19 10/24/23 mcg/actuation nasal Congestion spray,suspension multivitamin 1 tablet PO DAILY 01/21/21 10/24/23 omega-3 fatty acids 1,000 mg 1,000 mg PO DAILY 01/21/21 10/24/23 capsule (Fish Oil Concentrate) Lactobac.acidophilus-Bifido.animalis 2 tablet PO DAILY 02/13/21 10/24/23 1.5 billion cell chewable tablet biotin 10,000 mcg-keratin 100 mg 1 tablet PO DAILY 02/13/21 10/24/23 tablet (Biotin Plus Keratin) cholecalciferol (vitamin D3) 125 375 mcg PO DAILY 02/13/21 10/24/23 mcg (5,000 unit) capsule ketorolac 0.5 % eye drops 1 drp ophthalmic (eye) DIRECTED 08/11/22 10/24/23 Allergies Allergy/AdvReac Type Severity Reaction Status Date / Time atorvastatin AdvReac Intermediate muscle Verified 10/24/23 19:08 cramps Review of Systems Review of Systems: CONSTITUTIONAL: Denies fever, chills, or sweats. EYES: Denies visual changes, redness, or discharge. ENT: Denies otalgia and sore throat CARDIOVASCULAR: Denies chest pain, palpitations, or edema. RESPIRATORY: Denies cough or dyspnea. GASTROINTESTINAL: Denies abdominal pain, nausea, vomiting, or diarrhea. GENITOURINARY: Denies dysuria or hematuria. SKIN: Insect bite to forehead with surrounding redness and swelling. MUSCULOSKELETAL: Denies back pain, joint pain, or myalgia. NEUROLOGIC: Denies headache, numbness, or weakness. Pertinent positives per HPI. [facility] Past Medical History Medical History Asthma GERD (gastroesophageal reflux disease) HLD (hyperlipidemia) Hypothyroidism (acquired) Surgical History Surgical History H/O section History of retinal detachment left History of tonsillectomy Hx of partial thyroidectomy Family History Family History Father Hypertension Family history of diabetes mellitus in first degree relative Family history of coronary artery disease Sibling Hypertension Asthma Family history of coronary artery disease Social History Social History Smoking status: Never smoker Second hand tobacco smoke exposure: No Alcohol intake: current Drinks per week: 1 Alcohol use details: WINE Substance use: never Substance use type: does not use Living arrangements: alone Occupation/Education: retired Gender identity (if verbalized by the patient): Female Spiritual care concerns: No Comments At the time of my signature, I reviewed and agree with the nursing past medical, surgical, social, and family history. There is no relevant family history pertinent to the patient complaint. Exam Narrative: GENERAL: This is a well-nourished, well-developed patient, in no apparent distress. HEAD: normocephalic, atraumatic. EYES: Sclera clear/white. Vision is grossly intact. EARS: External ears normal. Hearing grossly intact. NOSE: External nose nor
[2023-10-24 19:11] VITALS: BP 147/74; PULSE 98; RESP 16; TEMP 36.3; O2SAT 100
== END 2023-10-24 19:22 | disposition home or self-care (01) ==
PROVIDERS: Emergency Provider Nurse Practitioner; PCP Family Medicine
DX: S00.86XA Insect bite (nonvenomous) of other part of head, initial encounter (principal); W57.XXXA Bitten or stung by nonvenomous insect and other nonvenomous arthropods, initial encounter; J45.909 Unspecified asthma, uncomplicated; K21.9 Gastro-esophageal reflux disease without esophagitis; E78.5 Hyperlipidemia, unspecified; E03.9 Hypothyroidism, unspecified; Z90.89 Acquired absence of other organs
CPT/HCPCS: 99213; G0463

== ENCOUNTER 2024-04-30 11:33 | Outpatient (CLI) | payer MEDICARE, SELFPAY ==
--- NOTE | ~2024-04-30 | XR_ITS ---
XR chest 2V Ordering provider: Elicia Berman PA-C History: 73 years Female with . R05.9 - Cough, unspecified . Comparison: None. FINDINGS: MEDIASTINUM: The cardiac silhouette is not enlarged. LUNGS: No effusions or pneumothorax. Minimal opacification seen in the right paracardiac area which m ay indicate atelectatic changes. Underlying emphysematous changes. OTHER: No free air under the diaphragm. Degenerative changes of the spine. IMPRESSION: Possible atelectatic changes in the right lung base. Pneumonia cannot be excluded. Clinical correlati on and follow-up advised. Reviewed, dictated and finalized at location A. CAST DIRECTOR IMPRESSION: Possible atelectatic changes in the right lung base. Pneumonia cannot be exclud ed. Clinical correlation and follow-up advised.
== END 2024-04-30 11:34 | disposition home or self-care (01) ==
PROVIDERS: PCP Family Medicine; Visit Provider Physician Assistant Medical
DX: R05.9 Cough, unspecified (principal); R06.02 Shortness of breath
CPT/HCPCS: 71046

== ENCOUNTER 2024-09-17 11:17 | Outpatient (CLI) | payer MEDICARE, SELFPAY ==
--- NOTE | ~2024-09-17 | US_ITS ---
Thyroid ultrasound. Clinical History: Multinodular goiter COMPARISON: 01/20/2021 Findings: Real-time sonography of the thyroid gland was performed. The right lobe measures 1.7 x 0.8 x 0.9 cm. The left lobe measures 3.8 x 1.5 x 1.8 cm. The isthmus is 3 mm in AP diameter. There is a 9 x 7 x 8 mm hypoechoic solid nodule at the left upper pole. There is a 1.4 x 1.6 x 1.0 cm isoechoic solid nodule at the left lower pole. Impression: Left thyroid lobe nodules, similar to prior exam. Suspected interval right hemithyroidectomy or other surgery. Reviewed, dictated and finalized at location . Impression: Left thyroid lobe nodules, similar to prior exam. Suspected interval right hemithyroidectomy or other surgery.
== END 2024-09-17 11:18 | disposition home or self-care (01) ==
LOC: GOSHIMG 11:17
PROVIDERS: PCP Family Medicine; Visit Provider Family Medicine
DX: E04.2 Nontoxic multinodular goiter (principal)
CPT/HCPCS: 76536

== ENCOUNTER 2024-10-11 08:22 | Emergency (ER) | payer MEDICARE, SELFPAY ==
--- NOTE | 2024-10-11 08:30 | ED_ITS ---
HPI - URI/Sore Throat General Chief Complaint: Upper Respiratory Infection Stated Complaint: Cough/Congestion/Sore Throat Time Seen by Provider: 10/11/24 08:38 Source: patient, RN notes reviewed and old records reviewed Mode of arrival: ambulatory Limitations: no limitations History of Present Illness HPI Narrative: 73-year-old female presents to the [facility] with complaints of cough, congestion and sore throat. Patient states that on Tuesday she started with symptoms, states symptoms are improving. No longer with a sore throat. Still having a runny nose. Reports that she has tried [id number] products with some relief. History of asthma Related Data Home Medications ?Medication ?Instructions ?Recorded ?Confirmed ?Last Taken ?Type fluticasone propionate 50 2 spray intranasal DAILY PRN 07/09/19 09/04/24 Unknown History mcg/actuation nasal Congestion spray,suspension multivitamin 1 tablet PO DAILY 01/21/21 10/11/24 Unknown History omega-3 fatty acids 1,000 mg 1,000 mg PO DAILY 01/21/21 10/11/24 Unknown History capsule (Fish Oil Concentrate) cholecalciferol (vitamin D3) 125 375 mcg PO DAILY 02/13/21 10/11/24 Unknown History mcg (5,000 unit) capsule ketorolac 0.5 % eye drops 1 drp ophthalmic (eye) DIRECTED 08/11/22 10/11/24 Unknown History Allergies Allergy/AdvReac Type Severity Reaction Status Date / Time Sulfa (Sulfonamide Allergy Unknown Unknown Verified 10/11/24 08:37 Antibiotics) atorvastatin AdvReac Intermediate muscle Verified 10/11/24 08:37 cramps Review of Systems Review of Systems: All systems reviewed & are unremarkable except as noted in HPI and below Constitutional: Constitutional: Reports as per HPI ENT: Reports as per HPI Cardiovascular: Cardiovascular: Reports no additional cardiovascular complaints, Denies chest pain and Denies dyspnea Respiratory: Respiratory: Reports as per HPI, Denies chest congestion, Reports cough and Denies dyspnea Musculoskeletal: Musculoskeletal: Reports no additional musculoskeletal complaints Integumentary/Breasts: Skin/Breast: Reports system reviewed and no additional complaints, except as docu PMFSH Past Medical History Medical History Hypothyroidism (acquired) GERD (gastroesophageal reflux disease) Asthma HLD (hyperlipidemia) Surgical History Surgical History History of retinal detachment left Hx of partial thyroidectomy H/O section History of tonsillectomy Family History Family History Father Hypertension Family history of diabetes mellitus in first degree relative Family history of coronary artery disease Sibling Hypertension Asthma Family history of coronary artery disease Social History Social History Smoking status: Never smoker Second hand tobacco smoke exposure: No Alcohol intake: current Alcohol use details: WINE Substance use: never Substance use type: does not use Do You Feel Safe in your Home?: Yes Lack of Transportation: No Lack of Food: Never True Current Housing: I Have Housing Concerned About Future Housing: No Difficulty Paying Gas/Electric Bills: No Difficulty Paying for Meds: No Currently Unemployed: YES Education: Don't Know Difficulty w/ Childcare or Family Care: No Living arrangements: alone Occupation/Education: retired Gender identity (if verbalized by the patient): Female Spiritual care concerns: No Comments At the time of my signature, I reviewed and agree with the nursing past medical, surgical, social, and family history. There is no relevant family history pertinent to the patient complaint. Exam Const: General: cooperative, healthy appearing, comfortable, no acute distress, well developed, alert and well nourished Nutritional Appearance: well nourished Orientation/consciousness: patient oriented x3 Limitations: no limitations HENMT: Head: normal to inspection Ears: hearing grossly normal bilaterally, external ears normal, TM's normal bilaterally, EAC's normal, mastoids normal and no periauricular adenopathy Face/Nose/Sinus: Normal external nose present and Nasal discharge present clear bilateral Face and sinus: normal facial exam Mouth: Yes Normal oral and palatal mucosa present, Yes lip normal, Yes tongue normal and Yes moist mucous membranes Throat: posterior oropharynx normal, uvula midline, postnasal drainage and no uvular edema Eyes: General: appearance normal, both eyes and all related structures Alignment and Position: alignment normal Neck: Neck: normal visual inspection, full ROM, no lymphadenopathy and no meningeal signs Chest: Chest palpation & inspection: normal inspection of the chest Resp: Effort & Inspection: normal respiratory effort and able to speak in complete sentences Auscultation: clear to auscultation bilaterally, no crackles, no rales, no rhonchi and no wheezes Cardio: Rate: regular rate Skin: General skin exam: normal color and no rashes or lesions noted Neuro: General: patient oriented x3, gait normal, moves all extremities and no meningeal signs Cognition (Neuro): normal cognition Speech: normal speech Gait exam (Neuro): Normal gait present Extrem: General: normal to inspection, full ROM, capillary refill normal and normal gait Psych: Appearance: grossly normal and well kempt Mental Status: mental status grossly normal Speech and movement: Normal speech and movement present and Clear speech present Affect: normal affect Attitude: cooperative Course Course Level of Care: Express Care Visit Vital Signs Vital signs: Vital Signs Temperature 97 F L 10/11/24 08:36 Pulse Rate 70 10/11/24 08:36 Respiratory Rate 16 10/11/24 08:36 Blood Pressure 147/70 H 10/11/24 08:36 Pulse Oximetry 100 10/11/24 08:36 Temperature 97 F L 10/11/24 08:36 Pulse Rate 70 10/11/24 08:36 Respiratory Rate 16 10/11/24 08:36 Blood Pressure 147/70 H 10/11/24 08:36 Pulse Oximetry 100 10/11/24 08:36 Reviewed MDM - URI/Sore Throat MDM Narrative Medical decision making narrative: Patient sitting comfortably in exam room. Patient is nontoxic, vitals stable. Patient in no acute distress. Patient presents with 5 day history of URI symptoms, symptoms are improving. No acute findings except for postnasal drainage noted on exam Patient appropriate for outpatient treatment with close Discharge instructions reviewed with patient, as well as provided in writing per nursing staff. The instructions also include specific and strict return/GO TO THE ER as well as f/u information. All questions have been answered, and the patient deny any further questions with discharge and discharge plan. Some parts of this dictation were generated by voice recognition software and may contain typographical and/or grammatical inaccuracies. Differential Diagnosis Differential diagnosis: Likely upper respiratory infection, otitis media, sinusitis, viral infection, bronchitis, influenza and pharyngitis Critical Care Time Critical Care Time Critical Care Time: No Discharge Plan Discharge Clinical Impression: Upper respiratory infection, PND (post-nasal drip) Patient Disposition: Home Condition: Stable Instructions: Antibiotic Form, Upper Respiratory Infection (DC), Postnasal Drip (DC) Additional Instructions: Today your blood pressure was 147/70. Is recommended follow-up with primary care provider within 2 weeks to have this rechecked. You have been prescribed a steroid pack, it will make you feel better by reducing inflammation but it also reduce his your immune system so please wear mask when around other people. It is very important to treat your symptoms. Drink plenty of water, Gatorade, Pedialyte, ice pops or Jell-O. -Alternate Tylenol and Motrin per package directions for fever or pain. You can alternate every 4 hours -Antihistamine medication such as Zyrtec/Claritin/Ally during the day can help improve symptoms. -doing daily saline nasal irrigations can help relieve pressure your sinuses. Things like a Neti pot -Use Flonase/Nasacort twice a day for 5 days then daily to help reduce the inflammation and dry up your sinuses. -You can also use Coricidin HBP or Mucinex. Be sure to drink plenty of water with this medication at least 8 ounces with every dose and it is important to drink 8 to 10 glasses of water per day. Water is a natural decongestant -Eat and drink things that are easy to swallow, like tea or soup, or popsicles. -Oral rinses such as: Salt water gargles and/or may use topical anesthetic (eg. Chloraseptic spray) or lozenges to relieve dryness or throat pain). -Frequent hand washing or hand alignment technician is one of the best ways to prevent spread of infection. -Using a vaporizer or humidifier at night will also help thin secretions and help with coughing up phlegm. -Follow up with primary care provider in 7-10 days if condition is not improving - For new or worsening symptoms go directly to the nearest ER Patient Language: [place] Prescriptions: New methylprednisolone [Medrol (Jourdan)] 4 mg tablets,dose pack See Rx Instructions PO .COMPLEX Qty: 21 0RF Rx Instructions: orally per package directions No Action ketorolac 0.5 % drops 1 drp ophthalmic (eye) DIRECTED fluticasone propionate 50 mcg/actuation spray,suspension 2 spray NASAL DAILY PRN (Reason: Congestion) Rx Instructions: administer into each nostril omega-3 fatty acids [Fish Oil Concentrate] 1,000 mg capsule 1,000 mg PO DAILY multivitamin Tablet 1 tablet PO DAILY cholecalciferol (vitamin D3) 125 mcg (5,000 unit) Capsule 375 mcg PO DAILY fluticasone propion-salmeterol [Advair Diskus] 500-50 mcg/dose blister with device 1 inh INHALATION Q12H Qty: 60 2RF pravastatin 20 mg tablet 20 mg PO DAILY Qty: 90 3RF albuterol sulfate 90 mcg/actuation HFA aerosol inhaler 2 puff inhalation Q4-6H PRN (Reason: shortness of breath or wheezing) Qty: 8.5 0RF albuterol sulfate 2.5 mg /3 mL (0.083 %) solution for nebulization 2.5 mg inhalation Q4-6H PRN (Reason: shortness of breath or wheezing) Qty: 180 1RF pantoprazole 40 mg tablet,delayed release (DR/EC) See Rx Instructions .ROUTE .COMPLEX Qty: 90 3RF Dose Instruction: TAKE 1 TABLET BY MOUTH EVERY DAY IN THE MORNING Rx Instructions: TAKE 1 TABLET BY MOUTH EVERY DAY IN THE MORNING lisinopril 10 mg tablet 10 mg PO QAM Qty: 90 1RF levothyroxine 25 mcg tablet 25 mcg PO DAILY Qty: 30 5RF Follow-up/Referrals: PHYSICIAN,RELAY MECHANIC [Primary Care Provider] - Time of Disposition: 09:06
[2024-10-11 08:36] VITALS: BP 147/70; PULSE 70; RESP 16; TEMP 36.1; O2SAT 100
== END 2024-10-11 09:15 | disposition home or self-care (01) ==
PROVIDERS: Emergency Provider Nurse Practitioner
DX: J06.9 Acute upper respiratory infection, unspecified (principal); R09.82 Postnasal drip; E03.9 Hypothyroidism, unspecified; E78.5 Hyperlipidemia, unspecified; K21.9 Gastro-esophageal reflux disease without esophagitis; J45.909 Unspecified asthma, uncomplicated; Z90.89 Acquired absence of other organs
CPT/HCPCS: 99213; G0463